=== PATIENT | female | born 1970 | race Caucasian/White ===

== ENCOUNTER 2017-08-21 16:45 | Inpatient (IN) | payer MEDICAID ==
[~2017-08-21] VITALS: Ht 162.6 cm; Wt 84.0 kg
[~2017-08-21 16:45] MED LIST: GLU10 PO; HUMI SC; KEFLEX500 MG; MECLIZINE12.5 M1 PO; METFORMIN HCL1000 MG PO
[2017-08-21 18:06] LABS: BILIRUBIN TOTAL 0.21 mg/dL (0.20-1.00); CALCIUM 8.4 mg/dL (8.5-10.1); CARBON DIOXIDE 23.2 mmol/L (21-32); CREATININE SERUM 3.4 mg/dL (0.6-1.0); POTASSIUM SERUM 4.7 mmol/L (3.5-5.1); TOTAL PROTEIN, SERUM 7.4 g/dL (6.4-8.2)
[2017-08-21 18:17] LABS: PLATELET COUNT 335 x10^3mcL (130-400)
[2017-08-21 18:30] LABS: RED CELL DISTRIBUTION WIDTH 15.2 % (11.5-14.5)
[2017-08-21 18:31] LABS: ALBUMIN 1.9 g/dL (3.4-5.0)
[2017-08-21 18:41] LABS: BAND NEUTROPHIL 0 % (0-10); BASOPHIL 0 % (0-2); MONOCYTE 2 % (0-7); PLATELET MORPHOLOGY PLATELETS NORMAL; SEGMENTED NEUTROPHILS 95 % (37-75); rbc morphology (normal/abnorm) NORMAL (NORMAL)
[2017-08-21] MEDS ORDERED: MECLIZINE HYDRO25 M1 PO (19:27)
[2017-08-21] MEDS ORDERED: ZES10 PO (19:28)
[2017-08-21] MEDS ORDERED: FERROUS SULFAT325 M2 PO (19:28)
[2017-08-21 20:29] LABS: CHOLESTEROL 178 mg/dL (<200); LIPASE 137 IU/L (73-393); MAGNESIUM 2.3 mg/dL (1.8-2.4); PHOSPHOROUS 4.8 mg/dL (2.5-4.9)
[2017-08-21 20:30] LABS: AMYLASE 9 U/L (25-115); CHOLESTEROL/HDL RATIO 14.8; HDL CHOLESTEROL 12 mg/dL (40-60); TRIGLYCERIDES 459 mg/dL (<150)
[2017-08-21 20:36] LABS: T3 TOTAL 0.56 ng/mL
[2017-08-21 20:39] VITALS: BP 80/43
[2017-08-21 21:00] LABS: FREE T4 1.51 ng/dL (0.76-1.46); FREE THYROXINE INDEX 2.6 ug/dL (1.4-4.5); T4(THYROXINE) 6.9 ug/dL (4.7-13.3)
[2017-08-21 23:10] VITALS: BP 94/53
[2017-08-22 00:04] LABS: CARBON DIOXIDE 20.4 mmol/L (21-32); CREATININE SERUM 2.6 mg/dL (0.6-1.0); MAGNESIUM 1.9 mg/dL (1.8-2.4); PHOSPHOROUS 2.8 mg/dL (2.5-4.9); POTASSIUM SERUM 3.5 mmol/L (3.5-5.1)
[2017-08-22 02:11] LABS: UA SPECIFIC GRAVITY 1.025 (1.005-1.035); microscopic required? YES; urine erythrocyte 3+ (NEGATIVE)
[2017-08-22 02:19] LABS: AMPHETAMINE QUAL UR POSITIVE (See below)
[2017-08-22 03:15] VITALS: BP 78/41
[2017-08-22 04:35] LABS: CALCIUM 7.1 mg/dL (8.5-10.1); CARBON DIOXIDE 22.1 mmol/L (21-32); CREATININE SERUM 2.3 mg/dL (0.6-1.0); MAGNESIUM 1.8 mg/dL (1.8-2.4); PHOSPHOROUS 2.8 mg/dL (2.5-4.9); POTASSIUM SERUM 3.5 mmol/L (3.5-5.1)
[2017-08-22 04:36] LABS: RED BLOOD CELLS 3.17 M/mm3 (4.10-5.10)
[2017-08-22 04:48] LABS: IRON 5 ug/dL (50-170); TOTAL IRON BINDING CAPACITY 135 ug/dL (250-450)
[2017-08-22 08:30] VITALS: BP 99/57
[2017-08-22 08:54] LABS: CALCIUM 6.9 mg/dL (8.5-10.1); CARBON DIOXIDE 20.4 mmol/L (21-32); CREATININE SERUM 2.1 mg/dL (0.6-1.0); MAGNESIUM 1.8 mg/dL (1.8-2.4); PHOSPHOROUS 3.1 mg/dL (2.5-4.9); POTASSIUM SERUM 3.8 mmol/L (3.5-5.1)
[2017-08-22 12:43] VITALS: BP 84/42
[2017-08-22 16:30] VITALS: BP 102/65
[2017-08-22 19:30] VITALS: BP 106/67
[2017-08-22 23:01] VITALS: BP 137/75
[2017-08-23 03:31] VITALS: BP 1241/51
[2017-08-23 05:39] LABS: PLATELET COUNT 385 x10^3mcL (130-400)
[2017-08-23 05:43] LABS: RED CELL DISTRIBUTION WIDTH 16.4 % (11.5-14.5)
[2017-08-23 05:59] LABS: BAND NEUTROPHIL 6 % (0-10); METAMYELOCTE 1 % (0-2); MONOCYTE 4 % (0-7); SEGMENTED NEUTROPHILS 79 % (37-75)
[2017-08-23 06:01] LABS: rbc morphology (normal/abnorm) ABNORMAL (NORMAL)
[2017-08-23 06:04] LABS: PLATELET MORPHOLOGY FEW LARGE PLATELETS
[2017-08-23 06:07] LABS: PHOSPHOROUS 2.2 mg/dL (2.5-4.9)
[2017-08-23 06:11] LABS: ALBUMIN 1.3 g/dL (3.4-5.0)
[2017-08-23 06:20] LABS: CALCIUM 6.7 mg/dL (8.5-10.1); CARBON DIOXIDE 21.2 mmol/L (21-32); CREATININE SERUM 1.6 mg/dL (0.6-1.0); POTASSIUM SERUM 3.8 mmol/L (3.5-5.1)
[2017-08-23 07:45] VITALS: BP 91/53
[2017-08-23 11:46] VITALS: BP 126/69
[2017-08-23 15:50] VITALS: BP 124/68
[2017-08-23 19:20] VITALS: BP 101/55
[2017-08-23 23:36] VITALS: BP 97/59
[2017-08-24 03:09] VITALS: BP 101/66
[2017-08-24 05:44] LABS: BASOPHIL % 0.7 % (0-2); PLATELET COUNT 362 x10^3mcL (130-400)
[2017-08-24 05:49] LABS: RED CELL DISTRIBUTION WIDTH 16.8 % (11.5-14.5)
[2017-08-24 05:59] LABS: CREATININE SERUM 1.5 mg/dL (0.6-1.0); POTASSIUM SERUM 3.7 mmol/L (3.5-5.1)
[2017-08-24 07:49] VITALS: BP 114/67
[2017-08-24 11:56] VITALS: BP 101/57
[2017-08-24 14:01] VITALS: Ht 162.6 cm; Wt 84.0 kg
[2017-08-24 20:37] VITALS: BP 101/49
[2017-08-25 05:05] VITALS: BP 109/47
[2017-08-25 06:15] LABS: CALCIUM 7.6 mg/dL (8.5-10.1); CARBON DIOXIDE 19.3 mmol/L (21-32); CREATININE SERUM 1.7 mg/dL (0.6-1.0); MAGNESIUM 1.9 mg/dL (1.8-2.4); PHOSPHOROUS 4.6 mg/dL (2.5-4.9); POTASSIUM SERUM 3.9 mmol/L (3.5-5.1)
[2017-08-25 06:19] LABS: BASOPHIL % 0.3 % (0-2); PLATELET COUNT 338 x10^3mcL (130-400)
[2017-08-25 07:00] LABS: RED CELL DISTRIBUTION WIDTH 16.5 % (11.5-14.5)
[2017-08-25 09:35] VITALS: BP 100/46
[2017-08-25 11:43] LABS: rbc morphology (normal/abnorm) ABNORMAL (NORMAL)
[2017-08-25 13:14] VITALS: BP 140/75
[2017-08-25 17:35] VITALS: BP 113/61
[2017-08-25 21:13] VITALS: BP 129/64
[2017-08-26] VITALS (9 sets, daily range): BP systolic 131–152; BP diastolic 65–77
[2017-08-26 01:10] LABS: BASOPHIL % 0.4 % (0-2); PLATELET COUNT 292 x10^3mcL (130-400)
[2017-08-26 01:12] LABS: RED CELL DISTRIBUTION WIDTH 16.9 % (11.5-14.5)
[2017-08-26 01:13] LABS: rbc morphology (normal/abnorm) ABNORMAL (NORMAL)
[2017-08-26 06:23] LABS: BASOPHIL % 0.5 % (0-2); PLATELET COUNT 277 x10^3mcL (130-400)
[2017-08-26 06:36] LABS: RED CELL DISTRIBUTION WIDTH 16.6 % (11.5-14.5)
[2017-08-26 06:37] LABS: CALCIUM 8.4 mg/dL (8.5-10.1); CARBON DIOXIDE 19.5 mmol/L (21-32); CREATININE SERUM 1.7 mg/dL (0.6-1.0); POTASSIUM SERUM 4.2 mmol/L (3.5-5.1)
[2017-08-26 06:41] LABS: rbc morphology (normal/abnorm) ABNORMAL (NORMAL)
[2017-08-26 11:37] LABS: BASOPHIL % 0.3 % (0-2); PLATELET COUNT 281 x10^3mcL (130-400)
[2017-08-26 11:41] LABS: RED CELL DISTRIBUTION WIDTH 16.5 % (11.5-14.5)
[2017-08-26 12:00] LABS: rbc morphology (normal/abnorm) ABNORMAL (NORMAL)
[2017-08-26 19:05] LABS: BASOPHIL % 0.3 % (0-2); PLATELET COUNT 306 x10^3mcL (130-400)
[2017-08-26 19:07] LABS: RED CELL DISTRIBUTION WIDTH 16.5 % (11.5-14.5)
[2017-08-27 05:08] VITALS: BP 151/82
[2017-08-27 06:36] LABS: BASOPHIL % 0.5 % (0-2); PLATELET COUNT 266 x10^3mcL (130-400)
[2017-08-27 07:07] LABS: CALCIUM 8.5 mg/dL (8.5-10.1); CARBON DIOXIDE 19.5 mmol/L (21-32); CREATININE SERUM 1.8 mg/dL (0.6-1.0); MAGNESIUM 1.9 mg/dL (1.8-2.4); PHOSPHOROUS 5.7 mg/dL (2.5-4.9); POTASSIUM SERUM 4.7 mmol/L (3.5-5.1)
[2017-08-27 07:13] LABS: RED CELL DISTRIBUTION WIDTH 16.5 % (11.5-14.5)
[2017-08-27 09:03] VITALS: BP 152/90
[2017-08-27 11:47] VITALS: BP 154/85
[2017-08-27 17:00] VITALS: BP 163/68
[2017-08-27 21:16] VITALS: BP 147/74
[2017-08-28 06:19] VITALS: BP 153/72
[2017-08-28 07:44] LABS: BASOPHIL % 0.2 % (0-2); PLATELET COUNT 291 x10^3mcL (130-400)
[2017-08-28 07:46] LABS: RED CELL DISTRIBUTION WIDTH 16.2 % (11.5-14.5)
[2017-08-28 08:03] LABS: CALCIUM 7.7 mg/dL (8.5-10.1); CREATININE SERUM 1.5 mg/dL (0.6-1.0); MAGNESIUM 1.8 mg/dL (1.8-2.4); PHOSPHOROUS 5.3 mg/dL (2.5-4.9); POTASSIUM SERUM 5.1 mmol/L (3.5-5.1)
[2017-08-28 13:13] VITALS: BP 142/72
[2017-08-28 18:10] VITALS: BP 146/79
[2017-08-28 21:41] VITALS: BP 158/84
[2017-08-29 05:21] VITALS: BP 154/65
[2017-08-29 06:41] LABS: BASOPHIL % 0.4 % (0-2); PLATELET COUNT 317 x10^3mcL (130-400)
[2017-08-29 06:43] LABS: CALCIUM 7.6 mg/dL (8.5-10.1); CARBON DIOXIDE 21.7 mmol/L (21-32); CREATININE SERUM 1.2 mg/dL (0.6-1.0); MAGNESIUM 1.8 mg/dL (1.8-2.4); PHOSPHOROUS 4.9 mg/dL (2.5-4.9); POTASSIUM SERUM 5.4 mmol/L (3.5-5.1)
[2017-08-29 06:51] LABS: RED CELL DISTRIBUTION WIDTH 15.9 % (11.5-14.5)
[2017-08-29 09:26] VITALS: BP 135/73
[2017-08-29] MEDS ORDERED: ATORVASTATIN CA40 M1 PO (11:02)
[2017-08-29] MEDS ORDERED: NOR5 PO (11:03)
[2017-08-29] MEDS ORDERED: BACTRIM DS1 TAB PO (11:03)
[2017-08-29 14:02] VITALS: BP 139/69
[2017-08-29 15:31] VITALS: BP 139/69
== END 2017-08-29 18:51 | disposition home health service (06) | DRG 720 ==
LOC: ED 16:45 → IC 19:51 → DU 19:51 → IC 20:13 → DU 08-24 15:02
PROVIDERS: Emergency Medicine; Family Medicine; Internal Medicine
DX: A41.9 Sepsis, unspecified organism (principal); N17.0 Acute kidney failure with tubular necrosis; E11.00 Type 2 diabetes mellitus with hyperosmolarity without nonketotic hyperglycemic-hyperosmolar coma (NKHHC); G93.41 Metabolic encephalopathy; E43 Unspecified severe protein-calorie malnutrition; L89.151 Pressure ulcer of sacral region, stage 1; E11.51 Type 2 diabetes mellitus with diabetic peripheral angiopathy without gangrene; E86.0 Dehydration; L03.113 Cellulitis of right upper limb; E87.1 Hypo-osmolality and hyponatremia; I42.2 Other hypertrophic cardiomyopathy; H05.00 Unspecified acute inflammation of orbit; B95.62 Methicillin resistant Staphylococcus aureus infection as the cause of diseases classified elsewhere; R65.20 Severe sepsis without septic shock; N39.0 Urinary tract infection, site not specified; S90.414A Abrasion, right lesser toe(s), initial encounter; S30.816A Abrasion of unspecified external genital organs, female, initial encounter; S00.81XA Abrasion of other part of head, initial encounter; E11.65 Type 2 diabetes mellitus with hyperglycemia; J45.909 Unspecified asthma, uncomplicated; F44.81 Dissociative identity disorder; H54.8 Legal blindness, as defined in USA; H26.8 Other specified cataract; E78.5 Hyperlipidemia, unspecified; D64.9 Anemia, unspecified; Z68.27 Body mass index [BMI] 27.0-27.9, adult; Z86.73 Personal history of transient ischemic attack (TIA), and cerebral infarction without residual deficits; Z90.01 Acquired absence of eye; Z79.84 Long term (current) use of oral hypoglycemic drugs; Z59.0 Homelessness; Z66 Do not resuscitate; X58.XXXA Exposure to other specified factors, initial encounter; Y92.89 Other specified places as the place of occurrence of the external cause
CPT/HCPCS: 36556; 36600; 82962; 83880; 84439; 92610-GN; J1170; J1642; J1815; J1885; J2060; J2270; J2405; J2543; J2916; J3370; J3490; J7030; J7042; P9016; Q0092; Q0163

== ENCOUNTER 2020-01-03 12:02 | Emergency (ER) | payer MEDICAID ==
[~2020-01-03] VITALS: Ht 162.6 cm; Wt 46.7 kg
[~2020-01-03 12:02] MED LIST changes: +ATORVASTATIN CA40 M1 PO; +BACTRIM DS1 TAB PO; +FERROUS SULFAT325 M2 PO; +MECLIZINE HYDRO25 M1 PO; +NOR5 PO; +ZES10 PO
[2020-01-03 12:11] VITALS: Ht 162.6 cm; Wt 46.7 kg
[2020-01-03 18:25] VITALS: BP 164/87
== END 2020-01-03 18:20 | disposition home or self-care (01) ==
LOC: ED 12:02
DX: S05.8X2D Other injuries of left eye and orbit, subsequent encounter (principal); H57.12 Ocular pain, left eye; X58.XXXD Exposure to other specified factors, subsequent encounter